=== PATIENT | female | born 1960 | race Caucasian/White ===

== ENCOUNTER → 2019-05-11 17:08 | Outpatient (CLI) | payer BC, SELFPAY ==
--- NOTE | ~2019-05-11 | MM_ITS ---
EXAMINATION: MM screening tita BI w mariya HISTORY: Screening mammogram TECHNIQUE: Craniocaudal and mediolateral oblique 3-D tomosynthesis images were obtained and synthetic 2-D images were generated. CAD analysis was submitted and interpreted. COMPARISON: 03/14/2018, 11/02/2013 bilateral digital screening mammogram examinations BREAST PARENCHYMAL COMPOSITION: There are scattered areas of fibroglandular density. FINDINGS: There is no evidence of suspicious mass, calcification, or architectural distortion to sugg est malignancy in either breast. There has been no suspicious interval change. IMPRESSION: 1. No mammographic evidence of malignancy. 2. Recommend routine screening mammography in one year. BI-RADS Category 1: Negative Reviewed, dictated and finalized at location A. RANCE CHECKER
== END ==
PROVIDERS: PCP Family Medicine Adolescent Medicine; Visit Provider Family Medicine Adolescent Medicine
DX: Z12.31 Encounter for screening mammogram for malignant neoplasm of breast (principal)
CPT/HCPCS: 77063; 77067

== ENCOUNTER → 2020-06-14 16:29 | Outpatient (CLI) | payer BC, SELFPAY ==
--- NOTE | ~2020-06-14 | MM_ITS ---
EXAMINATION: MM screening tita BI w mariya HISTORY: Screening TECHNIQUE: Craniocaudal and mediolateral oblique 3-D tomosynthesis images were obtained and synthetic 2-D images were generated. CAD analysis was submitted and interpreted. COMPARISON: Comparison to multiple prior studies sequentially, with oldest reviewed study dated 11/05. BREAST PARENCHYMAL COMPOSITION: There are scattered areas of fibroglandular density. FINDINGS: There are clustered indeterminate calcifications slightly lateral in the right breast on CC view. The left breast is stable without evidence for malignancy. IMPRESSION: 1. Indeterminate right breast calcifications. 2. Magnification views are recommended. BI-RADS Category 0: Incomplete: Needs additional imaging evaluation. Reviewed, dictated and finalized at location A. E HAND
== END ==
PROVIDERS: PCP Family Medicine Adolescent Medicine; Visit Provider Family Medicine Adolescent Medicine
DX: Z12.31 Encounter for screening mammogram for malignant neoplasm of breast (principal); R92.8 Other abnormal and inconclusive findings on diagnostic imaging of breast
CPT/HCPCS: 77063; 77067

== ENCOUNTER → 2020-07-07 07:35 | Outpatient (CLI) | payer BC, SELFPAY ==
--- NOTE | ~2020-07-07 | MM_ITS ---
EXAMINATION: MM diagnostic mammo unilat RT HISTORY: Indeterminate right breast calcifications on screening mammogram TECHNIQUE: Additional images of the right breast were performed. CAD analysis was submitted and inter preted. COMPARISON: 06/14/2020, 05/11/2019, 03/14/2018 FINDINGS: There are punctate round calcifications in the middle third of the slightly outer breast wh ich appear less numerous with 2-D magnification than on the synthetic 2-D image on recent screening m ammogram. No associated mass or architectural distortion is identified. IMPRESSION: 1. Probably benign right breast calcifications. 2. Recommend 6 month follow-up right diagnostic mammogram. BI-RADS category 3, probably benign findings. Reviewed, dictated and finalized at location A.
== END ==
PROVIDERS: PCP Family Medicine Adolescent Medicine; Visit Provider Physician Assistant
DX: R92.8 Other abnormal and inconclusive findings on diagnostic imaging of breast (principal)
CPT/HCPCS: 77065

== ENCOUNTER → 2020-07-25 02:28 | Outpatient (CLI) | payer BC, SELFPAY ==
[2020-07-25 19:42] LABS: SARS-CoV-2 RNA PCR Negative
== END ==
PROVIDERS: PCP Family Medicine Adolescent Medicine; Visit Provider Internal Medicine Gastroenterology
DX: Z01.812 Encounter for preprocedural laboratory examination (principal); Z20.822 Contact with and (suspected) exposure to COVID-19
CPT/HCPCS: C9803; U0003; U0005

== ENCOUNTER 2020-07-28 01:04 | Day surgery (SDC) | payer BC, SELFPAY ==
[2020-07-18 16:02] VITALS: BMI 19.9
--- NOTE | 2020-07-27 13:18 | WPDANESEPPF ---
Anes - Initial Pre Proc Eval Procedure: Operation Date: 07/28/20 07:30 Proposed Procedures p Screening Colonoscopy - Matias Maldonado MD Date/Time: 07/27/20 13:18 Surgeon: Matias Maldonado MD Pre Op Diagnosis: neoplasm screening, colon polyps Patient Data Age: 60 Gender: F Height: 5 ft 6 in Weight: 56 kg Allergies Allergy/AdvReac Type Severity Reaction Status Date / Time No Known Allergies Allergy Mild Verified 07/28/20 06:12 Home Medications Medication Instructions Recorded Confirmed Type Fish Oil 1 tab-cap PO DAILY 07/18/20 07/28/20 History Vitamin D3 1 tab-cap PO DAILY 07/18/20 07/28/20 History calcium carbonate [Calcium 600] 1,200 mg PO DAILY 07/18/20 07/28/20 History Patient hx anesthesia problems: none Family hx anesthesia problems: none PMFSH Past Medical History Medical History Anxiety Depression IBS (irritable bowel syndrome) Family History Family History Other Diabetes mellitus Family history of gout Family history of malignant neoplasm Family history of rheumatoid arthritis Hypertension Social History Social History Smoking status: Never smoker Alcohol intake: current Substance use: never Substance use type: does not use Living arrangements: with family Spiritual care concerns: No Anes - Eval Final PreProcedure Day of Procedure 07/27/20 13:18 Patient weight: normal Heart: regular rate and rhythm Lungs: clear to auscultation Airway: Mallampati scale class II Neurological: alert and oriented Last oral intake: >/= 8 hours ASA classification: II Emergent: no Anesthetic plan: proceed Anesthesia type and monitoring: general GIVS and standard monitoring Informed Consent: The patient's anesthetic plan and its attendant risks and benefits were discussed with the patient/family/POA. Questions were solicited and answers provided to the satisfaction of the patient/family/POA.
[2020-07-28 06:13] VITALS: BP 104/78; PULSE 68; RESP 16; TEMP 36.4; O2SAT 100
[2020-07-28] MEDS: LACTATED RINGERS 1,000 ML 150 ML IV CONT (06:18)
--- NOTE | 2020-07-28 06:55 | PM.HPGS ---
History of Present Illness History of Present Illness Consent: Risks, benefits, and alternatives have been discussed and questions answered. Patient agrees to proceed with procedure. Chief complaint: neoplasm screening, colon polyps Narrative: Rayna Courtney is a 60 year old female Referred for colon cancer screening. Her sister had colon cancer at the age of 50 Review of Systems Review of Systems: All systems reviewed & are unremarkable except as noted in HPI and below PMFSH Past Medical History Medical History Anxiety Depression IBS (irritable bowel syndrome) Family History Family History Other Diabetes mellitus Family history of gout Family history of malignant neoplasm Family history of rheumatoid arthritis Hypertension Social History Social History Smoking status: Never smoker Alcohol intake: current Substance use: never Substance use type: does not use Living arrangements: with family Spiritual care concerns: No Meds Home Medications and Allergies Home Medications Medication Instructions Recorded Confirmed Type Fish Oil 1 tab-cap PO DAILY 07/18/20 07/28/20 History Vitamin D3 1 tab-cap PO DAILY 07/18/20 07/28/20 History calcium carbonate [Calcium 600] 1,200 mg PO DAILY 07/18/20 07/28/20 History Allergies Allergy/AdvReac Type Severity Reaction Status Date / Time No Known Allergies Allergy Mild Verified 07/28/20 06:12 Vital Signs Vital Signs - 24 hr 07/28/20 06:13 Temperature 36.4 C Pulse Rate 68 Respiratory Rate 16 Blood Pressure 104/78 Pulse Oximetry 100 Exam Resp: Auscultation: clear to auscultation bilaterally Cardio: Rate: regular rate Rhythm: regular rhythm GI: GI Palp: Yes Soft to palpation and No Tenderness to palpation present (GI) Assessment and Plan Assessment and plan (1) Colon cancer screening: Code(s): Z12.11 - Encounter for screening for malignant neoplasm of colon Status: Acute Assessment and Plan: Colonoscopy with possible biopsy or polypectomy or cautery or injection of substances.
--- NOTE | 2020-07-28 07:22 | PM.HPGS ---
History of Present Illness History of Present Illness Consent: Risks, benefits, and alternatives have been discussed and questions answered. Patient agrees to proceed with procedure. Chief complaint: neoplasm screening, colon polyps Narrative: Rayna Courtney is a 60 year old female here for colon cancer screening. Her sister had colon cancer at the age of 50 Review of Systems Review of Systems: All systems reviewed & are unremarkable except as noted in HPI and below PMFSH Past Medical History Medical History Anxiety Depression IBS (irritable bowel syndrome) Family History Family History Other Diabetes mellitus Family history of gout Family history of malignant neoplasm Family history of rheumatoid arthritis Hypertension Social History Social History Smoking status: Never smoker Alcohol intake: current Substance use: never Substance use type: does not use Living arrangements: with family Spiritual care concerns: No Meds Home Medications and Allergies Home Medications Medication Instructions Recorded Confirmed Type Fish Oil 1 tab-cap PO DAILY 07/18/20 07/28/20 History Vitamin D3 1 tab-cap PO DAILY 07/18/20 07/28/20 History calcium carbonate [Calcium 600] 1,200 mg PO DAILY 07/18/20 07/28/20 History Allergies Allergy/AdvReac Type Severity Reaction Status Date / Time No Known Allergies Allergy Mild Verified 07/28/20 06:12 Vital Signs Vital Signs - 24 hr 07/28/20 06:13 Temperature 36.4 C Pulse Rate 68 Respiratory Rate 16 Blood Pressure 104/78 Pulse Oximetry 100 Exam Const: General: alert Orientation/consciousness: patient oriented x3 Resp: Auscultation: clear to auscultation bilaterally Cardio: Rhythm: regular rhythm GI: GI Palp: Yes Soft to palpation and No Tenderness to palpation present (GI) Neuro: General: patient oriented x3 Assessment and Plan Assessment and plan (1) Colon cancer screening: Code(s): Z12.11 - Encounter for screening for malignant neoplasm of colon Status: Acute Assessment and Plan: Colonoscopy with possible biopsy or polypectomy or cautery or injection of substances.
[2020-07-28 07:52] VITALS: BP 121/59; PULSE 72; RESP 16; O2SAT 100
[2020-07-28 08:02] VITALS: BP 108/70; PULSE 77; RESP 22; O2SAT 100
[2020-07-28 08:12] VITALS: BP 113/65; PULSE 70; RESP 21; O2SAT 100
== END 2020-07-28 08:20 | disposition home or self-care (01) ==
PROVIDERS: PCP Family Medicine Adolescent Medicine; Visit Provider Internal Medicine Gastroenterology
PROC: 0DJD8ZZ Inspection of Lower Intestinal Tract, Via Natural or Artificial Opening Endoscopic (ICD-10-PCS; CPT 45378; principal; 2020-07-28 07:30)
DX: Z12.11 Encounter for screening for malignant neoplasm of colon (principal); K57.30 Diverticulosis of large intestine without perforation or abscess without bleeding; Z80.0 Family history of malignant neoplasm of digestive organs; K58.9 Irritable bowel syndrome, unspecified; F41.8 Other specified anxiety disorders
CPT/HCPCS: 45378; C9803; J2704; J7120; U0003; U0005

== ENCOUNTER → 2020-10-12 17:05 | Outpatient (CLI) | payer BC, SELFPAY ==
--- NOTE | ~2020-10-12 | XR_ITS ---
EXAMINATION: XR foot RT min 3V DATE: 10/12/2020 17:26 INDICATION: Hallux abducto valgus. TECHNIQUE: 4 views of right foot were obtained. COMPARISON: Right foot radiographs 11/16/2015 FINDINGS: There is moderate hallux valgus. There is bony hypertrophy of medial aspect of head of firs t metatarsal with overlying soft tissue swelling. No fracture. There is mild osteoarthritis of first metatarsophalangeal joint and some of the interphalangeal joints and midfoot joints. There is chronic mild flattening of head of second metatarsal, consistent with osteonecrosis ([place] infraction). T here are enthesophytes at the posterior and plantar aspects of calcaneal tuberosity. IMPRESSION: 1. Moderate hallux valgus. 2. Mild polyarticular osteoarthritis. Reviewed, dictated and finalized at location A.
== END ==
PROVIDERS: Visit Provider Podiatrist Foot & Ankle Surgery
DX: M19.071 Primary osteoarthritis, right ankle and foot (principal); M20.11 Hallux valgus (acquired), right foot
CPT/HCPCS: 73630

== ENCOUNTER → 2021-01-09 09:06 | Outpatient (CLI) | payer BC, SELFPAY ==
--- NOTE | ~2021-01-09 | MM_ITS ---
EXAMINATION: MM diagnostic tita RT w mariya HISTORY: Follow-up right breast calcifications. TECHNIQUE: Additional 3-D tomosynthesis images of the right breast were performed and synthetic 2-D i mages were generated. CAD analysis was submitted and interpreted. COMPARISON: Comparison to multiple prior studies sequentially, with oldest reviewed study dated 02/13. BREAST PARENCHYMAL COMPOSITION: The breasts are heterogenously dense, which may obscure small masses. FINDINGS: Right breast calcifications have a benign appearance and are unchanged. No new masses, calc ifications or architectural distortion in the right breast to suggest malignancy. IMPRESSION: 1. No mammographic evidence for malignancy in the right breast. 2. Routine yearly screening mammogram and regular clinical breast examination are recommended. BI-RADS Category 2: Benign finding(s). Reviewed, dictated and finalized at location A. IMPRESSION: 1. No mammographic evidence for malignancy in the right breast. 2. Routine yearly screening mammogram and regular clinical breast examination a re recommended. BI-RADS Category 2: Benign finding(s).
== END ==
PROVIDERS: PCP Family Medicine Adolescent Medicine; Visit Provider Physician Assistant
DX: R92.8 Other abnormal and inconclusive findings on diagnostic imaging of breast (principal)
CPT/HCPCS: 77061; 77065; G0279

== ENCOUNTER → 2021-03-27 11:44 | Outpatient (CLI) | payer BC, SELFPAY ==
--- NOTE | ~2021-03-27 | DEXA_ITS ---
Bone Density Report Name: DINA IBARRA Age: 61 Sex: Female Ethnicity: White Date of : 1960 Indication: osteopenia; height loss; prior fracture; hysterectomy; postmenopausal Referring Provider: SANDY HANKS Study: Bone densitometry was performed. Exam Date: March 27, 2021 Accession number: [id number] Bone Density: Region BMD T-score Z-score Classification AP Spine (L1-L4) 0.925 -1.1 0.5 Osteopenia Femoral Neck (Left) 0.728 -1.1 0.3 Osteopenia Total Hip (Left) 0.928 -0.1 1.0 Normal Femoral Neck (Right) 0.724 -1.1 0.3 Osteopenia Total Hip (Right) 0.912 -0.2 0.9 Normal Total Hip Mean 0.920 -0.2 1.0 Normal World Health Organization criteria for BMD impression classify patients as: Normal (T-score at or above -1.0), Osteopenia (T-score between -1.0 and -2.5), or Osteoporosis (T-score at or below -2.5). 10-year Fracture Risk(1): Major Osteoporotic Fracture 13% Hip Fracture 0.9% Reported Risk Factors: [place] (), Neck BMD=0.724, BMI=23.9, previous fracture (1) FRAX(R) Version 3.08. Fracture probability calculated for an untreated patient. Fracture probability may be lower if the patient has received treatment. Previous Exams: Region Exam Age BMD T-score BMD Change BMD Change Date g/cm2 vs Baseline vs Previous AP Spine(L1-L4) 03/27/2021 61 0.925 -1.1 -0.033* 0.011 03/14/2018 58 0.914 -1.2 -0.044* -0.058* 12/13/2015 55 0.972 -0.7 0.014 -0.019 10/15/2012 52 0.991 -0.5 0.033* 0.049* 04/14/2010 50 0.943 -0.9 -0.016 0.020 04/06/2009 49 0.922 -1.1 -0.036* -0.036* 06/08/2005 45 0.958 -0.8 Total Hip(Left) 03/27/2021 61 0.928 -0.1 -0.141* -0.032* 03/14/2018 58 0.960 0.1 -0.109* -0.124* 12/13/2015 55 1.084 1.2 0.015 0.036* 10/15/2012 52 1.048 0.9 -0.022 0.051* 04/14/2010 50 0.996 0.4 -0.073* 0.021 04/06/2009 49 0.976 0.3 -0.094* -0.094* 06/08/2005 45 1.069 1.0 Total Hip(Right) 03/27/2021 61 0.912 -0.2 -0.173* -0.025 03/14/2018 58 0.937 0.0 -0.147* -0.159* 12/13/2015 55 1.096 1.3 0.012 0.037* 10/15/2012 52 1.060 1.0 -0.025 0.071* 04/14/2010 50 0.989 0.4 -0.096* 0.009 04/06/2009 49 0.980 0.3 -0.105* -0.105* 06/08/2005 45 1.085 1.2
== END ==
PROVIDERS: PCP Family Medicine Adolescent Medicine; Visit Provider Family Medicine Adolescent Medicine
DX: Z78.0 Asymptomatic menopausal state (principal); M85.88 Other specified disorders of bone density and structure, other site; M85.851 Other specified disorders of bone density and structure, right thigh; M85.852 Other specified disorders of bone density and structure, left thigh
CPT/HCPCS: 77080

== ENCOUNTER → 2022-03-20 12:05 | Outpatient (CLI) | payer BC, SELFPAY ==
--- NOTE | ~2022-03-20 | MM_ITS ---
EXAMINATION: MM screening [facility] BI w mariya HISTORY: Screening mammogram TECHNIQUE: Craniocaudal and mediolateral oblique 3-D tomosynthesis images were obtained and synthetic 2-D images were generated. CAD analysis was submitted and interpreted. COMPARISON: 01/09/2021, 07/07/2020, 06/14/2020, 05/11/2019 BREAST PARENCHYMAL COMPOSITION: The breasts are heterogeneously dense, which may obscure small masses . FINDINGS: No suspicious mass, calcification, or architectural distortion are identified in either humberto ast to suggest malignancy. There has been no suspicious interval change. IMPRESSION: 1. No mammographic evidence of malignancy. 2. Recommend routine screening mammography in one year. BI-RADS Category 1: Negative Reviewed, dictated and finalized at location A. 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
== END ==
PROVIDERS: PCP Family Medicine Adolescent Medicine; Visit Provider Family Medicine Adolescent Medicine
DX: Z12.31 Encounter for screening mammogram for malignant neoplasm of breast (principal)
CPT/HCPCS: 77063; 77067

== ENCOUNTER → 2023-04-02 13:00 | Outpatient (CLI) | payer BC, SELFPAY ==
--- NOTE | ~2023-04-02 | MM_ITS ---
EXAMINATION: MM screening tita BI w mariya HISTORY: Screening mammogram TECHNIQUE: Craniocaudal and mediolateral oblique 3-D tomosynthesis images were obtained and synthetic 2-D images were generated. CAD analysis was submitted and interpreted. COMPARISON: No prior mammogram is available for comparison at this institution. BREAST PARENCHYMAL COMPOSITION: There are scattered areas of fibroglandular density. FINDINGS: There is no evidence of suspicious mass, calcification, or architectural distortion to sugg est malignancy in either breast. There has been no suspicious interval change. IMPRESSION: 1. No mammographic evidence of malignancy. 2. Recommend routine screening mammography in one year. BI-RADS Category 1: Negative Reviewed, dictated and finalized at location A. CLE FARE COLLECTOR
--- NOTE | ~2023-04-02 | DEXA_ITS ---
Bone Density Report Name: DINA IBARRA Age: 63 Sex: Female Ethnicity: White Date of : 1960 Indication: osteopenia; parental hip fracture; height loss; prior fracture; hysterectomy; postmenopausal Referring Provider: SANDY HANKS Study: Bone densitometry was performed. Exam Date: April 02, 2023 Accession number: [id number] Bone Density: Region BMD T-score Z-score Classification AP Spine (L1-L4) 0.950 -0.9 0.9 Normal Femoral Neck (Left) 0.722 -1.1 0.4 Osteopenia Total Hip (Left) 0.929 -0.1 1.1 Normal Femoral Neck (Right) 0.729 -1.1 0.4 Osteopenia Total Hip (Right) 0.962 0.2 1.4 Normal Total Hip Mean 0.946 0.1 1.3 Normal World Health Organization criteria for BMD impression classify patients as: Normal (T-score at or above -1.0), Osteopenia (T-score between -1.0 and -2.5), or Osteoporosis (T-score at or below -2.5). 10-year Fracture Risk(1): Major Osteoporotic Fracture 26% Hip Fracture 1.1% Reported Risk Factors: [place] (), Neck BMD=0.729, BMI=26.9, previous fracture, parental fracture (1) FRAX(R) Version 3.08. Fracture probability calculated for an untreated patient. Fracture probability may be lower if the patient has received treatment. Previous Exams: Region Exam Age BMD T-score BMD Change BMD Change Date g/cm2 vs Baseline vs Previous AP Spine(L1-L4) 04/02/2023 63 0.950 -0.9 -0.008 0.026* 03/27/2021 61 0.925 -1.1 -0.033* 0.011 03/14/2018 58 0.914 -1.2 -0.044* -0.058* 12/13/2015 55 0.972 -0.7 0.014 -0.019 10/15/2012 52 0.991 -0.5 0.033* 0.049* 04/14/2010 50 0.943 -0.9 -0.016 0.020 04/06/2009 49 0.922 -1.1 -0.036* -0.036* 06/08/2005 45 0.958 -0.8 Total Hip(Left) 04/02/2023 63 0.929 -0.1 -0.140* 0.002 03/27/2021 61 0.928 -0.1 -0.141* -0.032* 03/14/2018 58 0.960 0.1 -0.109* -0.124* 12/13/2015 55 1.084 1.2 0.015 0.036* 10/15/2012 52 1.048 0.9 -0.022 0.051* 04/14/2010 50 0.996 0.4 -0.073* 0.021 04/06/2009 49 0.976 0.3 -0.094* -0.094* 06/08/2005 45 1.069 1.0 Total Hip(Right) 04/02/2023 63 0.962 0.2 -0.123* 0.050* 03/27/2021 61 0.912 -0.2 -0.173* -0.025 03/14/2018 58 0.937 0.0 -0.147* -0.159* 12/13/2015 55 1.096 1.3 0.012 0.037* 10/15/2012 52 1.060 1.0 -0.025 0.071*
== END ==
PROVIDERS: PCP Family Medicine Adolescent Medicine; Visit Provider Family Medicine Adolescent Medicine
DX: Z12.31 Encounter for screening mammogram for malignant neoplasm of breast (principal); M85.89 Other specified disorders of bone density and structure, multiple sites; Z78.0 Asymptomatic menopausal state
CPT/HCPCS: 77063; 77067; 77080

== ENCOUNTER 2023-10-01 08:21 | Emergency (ER) | payer MEDICARE, SELFPAY ==
--- NOTE | ~2023-10-01 | XR_ITS ---
EXAMINATION: XR lumbar spine 2-3V DATE: 10/01/2023 09:07 INDICATION: Right-sided low back pain. TECHNIQUE: 3 views of lumbar spine were obtained. COMPARISON: Lumbar spine radiographs 02/26/2015 FINDINGS: There is 3 degrees dextrocurvature of thoracolumbar spine. Vertebral body heights are rere l. There is mildly decreased disc height at L2-L3, L3-L4, and L4-L5 and moderately decreased disc hei ght at L5-S1. There are endplate osteophytes at most levels. There is multilevel severe facet joint o steoarthritis. IMPRESSION: 1. Moderate lumbar spondylosis. Reviewed, dictated and finalized at location E.
--- NOTE | 2023-10-01 08:38 | ED.BACK ---
HPI - Back Pain/Injury General Chief Complaint: Back Pain/Injury Stated Complaint: right side lower back pain Source: patient Mode of arrival: ambulatory Limitations: no limitations History of Present Illness HPI Narrative: 63 y/o female presented for c/o right lower back pain radiating to leg for about one week. Pain is a constant dull ache, and at times sharp pain radiating to the hip and outer thigh. Pain flares after housework. Denies numbness, tingling, weakness of the lower extremities, or change in gait, saddle paresthesia or loss of bowel or bladder. Taking ibuprofen. Denies recent injury. Related Data Home Medications Medication Instructions Recorded Confirmed Fish Oil 1 tab-cap PO DAILY 07/18/20 10/01/23 Vitamin D3 1 tab-cap PO DAILY 07/18/20 10/01/23 calcium carbonate (Calcium 600) 1,200 mg PO DAILY 07/18/20 10/01/23 multivitamin with iron 1 tablet PO DAILY 08/29/21 10/01/23 vitamin E 200 unit capsule 200 unit PO DAILY 08/29/21 10/01/23 ginkgo biloba 500 mg capsule 500 mg PO DAILY 02/04/23 10/01/23 lactobacillus combination no.4 3 3,000 mmu cells PO DAILY 02/04/23 10/01/23 billion cell capsule (Probiotic) potassium citrate 99 mg capsule 99 mg PO DIRECTED 02/04/23 10/01/23 Allergies Allergy/AdvReac Type Severity Reaction Status Date / Time No Known Allergies Allergy Mild Verified 02/04/23 15:18 Review of Systems Review of Systems: CONSTITUTIONAL: Denies body aches, fever, chills EYES: Denies visual changes CARDIOVASCULAR: Denies chest pain, palpitations, or edema. RESPIRATORY: Denies cough or dyspnea. GASTROINTESTINAL: Denies abdominal pain, nausea, vomiting, or diarrhea. SKIN: Denies rash, itching, or wounds. MUSCULOSKELETAL: reports back pain NEUROLOGIC: Denies headache, numbness, tingling, or weakness. All systems reviewed & are unremarkable except as noted in HPI and below PMFSH Past Medical History Medical History Anxiety Depression IBS (irritable bowel syndrome) Surgical History Surgical History History of hysterectomy for cancer Family History Family History Father Acute myocardial infarction Family history of gout Family history of rheumatoid arthritis Sibling Breast cancer Carcinoma of colon Colon polyp Family history of malignant neoplasm Son Depression Mother Diabetes mellitus Hypertension Social History Social History Smoking status: Never smoker Second hand tobacco smoke exposure: Yes Alcohol intake: current Drinks per week: 2 Substance use: never Substance use type: does not use Lack of Transportation: No Lack of Food: Never True Current Housing: I Have Housing Concerned About Future Housing: No Difficulty Paying Gas/Electric Bills: YES Difficulty Paying for Meds: No Currently Unemployed: No Education: High School Diploma/GED Difficulty w/ Childcare or Family Care: No Living arrangements: alone Occupation/Education: occupation Gender identity (if verbalized by the patient): Female Sexual Orientation (if Verbalized by the Patient): Straight or Heterosexual Spiritual care concerns: No Agree to blood products: Yes Comments At time of signature, I have reviewed and agree with nursing past medical, surgical, social and family history unless otherwise noted. Please see nursing chart for further information. There is no relevant family history pertinent to the presenting complaint Exam Narrative: GENERAL: Well-appearing CHEST: Speaks in full sentences. No respiratory distress. HEART: Regular rate and rhythm. Normal and equal peripheral pulses. MUSC: No Vertebral point tenderness. BLEs with normal strength and sensation, normal range of motion, endorses pain with anterior movement of RLE. Mild
[2023-10-01 08:40] VITALS: BP 127/81; PULSE 74; RESP 16; TEMP 36.8; O2SAT 99
== END 2023-10-01 09:55 | disposition home or self-care (01) ==
PROVIDERS: Emergency Provider Nurse Practitioner Family; PCP Family Medicine Adolescent Medicine
DX: M54.16 Radiculopathy, lumbar region (principal); Z85.41 Personal history of malignant neoplasm of cervix uteri
CPT/HCPCS: 72100; 99213; G0463

== ENCOUNTER 2024-04-13 09:50 | Outpatient (CLI) | payer MEDICARE, SELFPAY ==
--- NOTE | ~2024-04-13 | MM_ITS ---
EXAMINATION: MM screening [facility] BI w mariya HISTORY: Screening mammogram TECHNIQUE: Craniocaudal and mediolateral oblique 3-D tomosynthesis images were obtained and synthetic 2-D images were generated. CAD analysis was submitted and interpreted. COMPARISON: 04/02/2023, 03/20/2022, 01/09/2021 BREAST PARENCHYMAL COMPOSITION:Not Dense. There are scattered areas of fibroglandular density. FINDINGS: No suspicious mass, calcification, or architectural distortion are identified in either humberto ast to suggest malignancy. There has been no suspicious interval change. IMPRESSION: No mammographic evidence of malignancy. Recommend routine screening mammography in one year. BI-RADS Category 1: Negative Reviewed, dictated and finalized at location . 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
== END 2024-04-13 09:51 | disposition home or self-care (01) ==
LOC: MICIMG 09:50
PROVIDERS: PCP Family Medicine Adolescent Medicine; Visit Provider Family Medicine Adolescent Medicine
DX: Z12.31 Encounter for screening mammogram for malignant neoplasm of breast (principal)
CPT/HCPCS: 77063; 77067

== ENCOUNTER 2025-01-04 13:19 | Outpatient (CLI) | payer MEDICARE, SELFPAY ==
--- NOTE | ~2025-01-04 | XR_ITS ---
EXAMINATION: XR TMJ BI DATE: 01/04/2025 13:46 INDICATION: Jaw pain TECHNIQUE: Lateral views of the left and right temporomandibular joints were obtained with the mouth in the open and closed positions. COMPARISON: None. FINDINGS: Bilateral temporomandibular joints are normal alignment with normal anterior translation in the open mouth position. 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 No air-fluid levels in the paranasal sinuses. Bilateral mastoids are well pneumatized. Multiple dental restorations. No fractures identified. IMPRESSION: 1. 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 Reviewed, dictated and finalized at location A.
--- OUTSIDE RECORDS SUMMARY | 2025-01-04 13:46 | XMS_ITS | Clinical Summary ---
Author Organization [facility] Address [facility] [place] [address] Care Team Providers Care Meteorological Engineer Name Role Phone Brad Black MD Primary Care Provider [phone] Allergies No known active allergies Medications CALCIUM OR Take 1 tablet by mouth daily. Active Ergocalciferol (VITAMIN D OR) Take 1 tablet by mouth daily. Active [place]-3 Fatty Acids (FISH OIL OR) Take 1 tablet by mouth daily. Active Cyanocobalamin (VITAMIN B-12 OR) Take 1 tablet by mouth daily. Active Acetaminophen (TYLENOL OR) Take 1-2 tablets by mouth as needed. Active APPLE CIDER VINEGAR OR Take 1 capsule by mouth daily. Active Family History Medical History Relation Comments Stroke Father tia Cancer Mother pancreatic cance r Diabetes Mother Hypertension Mother Diabetes Other grandson type I diabetes Cancer Sister colon cancer Relation Status Comments Father (Age 92) Mother (Age 84) Other Sister Alive Social History Tobacco Use Types Packs/Day Years Used Date Smoking Tobacco: Former Cigarettes 0.1 5 1 8 - 1982 Smokeless Tobacco: Never Comments:social smoker for s everal years when out to drink or eat out Alcohol Use Standard Drinks/Week Comments Yes 1 (1 standard drink = 0.6 oz pur e alcohol) Comments No Sex and Gender Information Value Date Recorded Sex Assigned at Not on file Legal Sex Female 5:59 PM CDT Gender Identity Not on file Sexual Orientation Not on file Last Filed Vital Signs Vital Sign Reading Time Taken Comments Blood Pressure 134/63 02/27/2022 9:55 AM GASKET FORMER Pulse 82 02/27/2022 9:55 AM GASKET FORMER Temperature 36.7 C (98.1 F) 02/27/2022 9:55 AM GASKET FORMER Respiratory Rate 18 02/27/2022 9:55 AM GASKET FORMER Oxygen Saturation 95% 02/27/2022 9:55 AM GASKET FORMER Inhaled Oxygen Concentration - - Weight 62.6 kg (138 lb 0.1 oz) 02/27/2022 6:22 A M GASKET FORMER Height 167.6 cm (5' 6) 02/27/2022 6:22 AM GASKET FORMER Body Mass Index 22.28 02/27/2022 6:22 AM GASKET FORMER Plan of Treatment Health Maintenance Due Date Last Done Comments Colorectal Cancer Screening Colonoscopy (10 Years) 1958 Hepatitis C 1976 DTaP, Tdap and Td Vaccines (1 - Tdap) 1977 Mammogram Screening 1998 Pneumococcal Vaccine: 50+ Years (1 of 1 - PCV) 2008 Zoster Vaccines (1 of 2) 2008 Dexa Scan (General) 2023 COVID-19 Vaccine ( season) 2024 01/01/2022, 07/25/2021, 02/07/2021, Additional history exists RSV Immunization or 60+ Years (1 - 1-dose 75+ series) 2033 Meningococcal B Vaccine Aged Out No l onger eligible based on patient's age to complete this topic Meningococcal Vaccine Aged Out No tray barrington eligible based on patient's age to complete this topic RSV Immunizations Under 20 Months Aged Out No longer eligible based on patient's age to complete this topic Medical Devices Implanted Type Area Grip Assembler Device Identifier Shelf Expiration Date Model / Serial / Lot Wire Fixation [employer] L9 In Od.045 In 2 Tr - [id number] Implanted:Qty: 1 on 02/27/2022 by Ace Fonseca DPM at [facility] Wire Right: Foot [employer] [id number] / / Insurance [facility] Care Teams Meteorological Engineer Relationship Specialty Start Date End Date Brad Black MD [address] [id number] PCP - General FAMILY PRACTICE 02/21/22
== END 2025-01-04 13:20 | disposition home or self-care (01) ==
PROVIDERS: PCP Nurse Practitioner Family; Visit Provider Nurse Practitioner Family
DX: R68.84 Jaw pain (principal); M19.09 Primary osteoarthritis, other specified site
CPT/HCPCS: 70330